=== PATIENT | male | born 1985 | race Caucasian/White ===

== ENCOUNTER 2020-09-28 12:52 | Emergency (ER) | payer MEDICAID, SELFPAY ==
[2020-09-28 13:53] VITALS: BP 151/97; PULSE 78; RESP 16; TEMP 36.4; O2SAT 100; BMI 20.9
--- NOTE | 2020-09-28 16:06 | W.ED.GIBLEED ---
HPI - GI Bleed General: Chief complaint: GI Bleed Stated complaint: abd pain, blood in stool, vomiting Time Seen by Provider: 09/28/20 15:58 History of Present Illness: HPI Narrative: 35-year-old with history of ulcerative colitis. Is been several years since he has had a flare. Last several months has lost 30 or 40 pounds he recently moved to this area is not seen a doctor yet. He has been having intermittent bloody stools since have been progressively worsening. Has a lot of abdominal discomfort and cramping he has not had any hematemesis. He denies fever is not had any treatment for he is currently not take anything for it. MD complaint: gross hematochezia Onset (ago): month(s) Pain Consistency: intermittent Severity: moderate Relieving factors: none Associated symptoms: Reports abdominal pain, malaise, nausea, poor appetite and weakness; Denies chills, easy bruising, epistaxis, fever(s), headache(s), other bleeding, rash, syncope or vomiting Treatments Prior to Arrival: none Review of Systems Const: Reports: malaise; Denies: fever(s) or chills ENMT: Denies: epistaxis Card: Denies: syncope Resp: Denies: dyspnea, productive cough or non-productive cough GI: Reports: abdominal pain and nausea; Denies: vomiting : Denies: flank pain, dysuria, urinary frequency or urinary urgency Skin/Breast: Denies: rash Neuro: Denies: headache(s) Omid/Lymph: Denies: easy bruising PFS ED PFSH: Social History Smoking and tobacco status: never smoked Alcohol intake: never Physical Exam Const: COMMON NORMALS: no acute distress GENERAL APPEARANCE: cooperative and comfortable ORIENTATION/CONSCIOUSNESS: Yes awake, Yes oriented to person, Yes oriented to place and Yes oriented to time HENMT: COMMON NORMALS: normocephalic, atraumatic and hearing grossly normal bilaterally HEAD & SCALP: normocephalic and atraumatic Neck/C-Spine: COMMON NORMALS: no JVD Resp: COMMON NORMALS: normal respiratory effort, No retractions, No use of accessory muscles and clear to auscultation bilaterally AUSCULTATION: clear to auscultation bilaterally Cardio: COMMON NORMALS: no JVD, regular rate, regular rhythm and No murmurs present (Cardio) RATE: regular rate RHYTHM: regular rhythm GI: COMMON NORMALS: Soft to palpation and No hepatosplenomegaly present AUSCULTATION: Yes normoactive bowel sounds PALPATION: Yes Soft to palpation, Yes Tenderness to palpation present (GI) (diffuse), No Guarding due to palpation present (GI) and Yes No hepatosplenomegaly present Extremity: COMMON NORMALS: normal to inspection, capillary refill normal, no clubbing, cyanosis or edema, no calf tenderness and no pedal edema Neuro: SENSORIUM/ORIENTATION: Yes oriented to person, Yes oriented to place and Yes oriented to time Skin: COMMON NORMALS: no rashes or lesions noted GENERAL SKIN EXAM: no rashes or lesions noted Course Vital Signs: Vital signs: Vital Signs Temperature 97.5 F L 09/28/20 13:53 Pulse Rate 79 09/28/20 18:24 Respiratory Rate 19 H 09/28/20 18:24 Blood Pressure 165/102 09/28/20 18:24 Pulse Oximetry 99 09/28/20 18:24 MDM - GI Bleed MDM Narrative: Medical decision making narrative: Reviewed findings with the patient we will start him on prednisone given hydrocodone and Zofran. Hydroxyzine as needed for anxiety follow-up with primary care will have case management get him established with Dr. Alex wang if has further problems Lab Data: Labs: Lab Results 09/28/20 09/28/20 09/28/20 Range/Units 16:29 16:29 16:29 WBC 7.6 (4.0-10.0) 10^3/ uL RBC 4.81 (4.1-5.3) 10^6/u L Hgb 14.1 (11.7-16.6) g/dL Hct 43.0 (42.0-52.0) % MCV 89.4 (80-94) fL MCH 29.3 (28.0-34.0) pg MCHC 32.8 (30.0-36.0) g/dL RDW 13.2 (12.1-15.1) % Plt Count 280 (130-400) 10^3/c mm MPV 11.1 H (7.4-10.4) fL Neut % (Auto) 62.8 % Lymph % (Auto) 29.4 % [place] % (Auto) 5.7 % Eos % (Auto) 1.3 % Baso % (Auto) 0.7 % Neut # (Auto) 4.77 (1.8-7.7) 10^3/u L Lymph # (Auto) 2.2 (0.8-4.8) 10^3/u L [place] # (Auto) 0.4 (0.2-0.9) 10^3/u L Eos # (Auto) 0.1 (0.0-0.8) 10^3/u L Baso # (Auto) 0.1 (0.0-0.1) 10^3/u L Nucleated RBC % (a uto) 0 % Nucleated RBCs # 0.0 /100WBC Sodium 141 (136-145) mmol/L Potassium 4.3 (3.5-5.1) mmol/L Chloride 100 (98-107) mmol/L Carbon Dioxide 27 (22-29) mmol/L Anion Gap 18.3 (5-19) BUN 6 (6-20) mg/dL Creatinine 0.8 (0.7-1.2) mg/dL GFR Calculation 108.8 (90-130) mL/min Glucose 93 (65-115) mg/dL Calculated Osmolal ity 289 (285-295) mOsm/k g Lactic Acid 1.4 (0.5-2.2) mmol/L Calcium 9.3 (8.5-10.5) mg/dL Total Bilirubin 0.3 (0.15-1.2) mg/dL AST 15 (0-40) U/L ALT 11 (0-41) U/L Alkaline Phosphata se 104 (40-130) IU/L Total Protein 7.7 (6.6-8.7) g/dL Albumin 4.5 (3.5-5.2) g/dL Globulin 3.2 (1.3-4.6) g/dL Lipase 23 (13-60) U/L Urine Color (Yellow) Urine Appearance (CLEAR) Urine pH (5-7) Ur Specific Gravit y (1.005-1.030) Urine Protein (Negative) Urine Glucose (UA) (Normal) Urine Ketones (Negative) Urine Blood (Negative) Urine Nitrate (Negative) Urine Bilirubin (Negative) Urine Urobilinogen (Negative) mg/dL Ur Leukocyte Rosa Isela ase (Negative) 09/28/20 Range/Units 17:04 WBC (4.0-10.0) 10^3/ uL RBC (4.1-5.3) 10^6/u L Hgb (11.7-16.6) g/dL Hct (42.0-52.0) % MCV (80-94) fL MCH (28.0-34.0) pg MCHC (30.0-36.0) g/dL RDW (12.1-15.1) % Plt Count (130-400) 10^3/c mm MPV (7.4-10.4) fL Neut % (Auto) % Lymph % (Auto) % [place] % (Auto) % Eos % (Auto) % Baso % (Auto) % Neut # (Auto) (1.8-7.7) 10^3/u L Lymph # (Auto) (0.8-4.8) 10^3/u L [place] # (Auto) (0.2-0.9) 10^3/u L Eos # (Auto) (0.0-0.8) 10^3/u L Baso # (Auto) (0.0-0.1) 10^3/u L Nucleated RBC % (a uto) % Nucleated RBCs # /100WBC Sodium (136-145) mmol/L Potassium (3.5-5.1) mmol/L Chloride (98-107) mmol/L Carbon Dioxide (22-29) mmol/L Anion Gap (5-19) BUN (6-20) mg/dL Creatinine (0.7-1.2) mg/dL GFR Calculation (90-130) mL/min Glucose (65-115) mg/dL Calculated Osmolal ity (285-295) mOsm/k g Lactic Acid (0.5-2.2) mmol/L Calcium (8.5-10.5) mg/dL Total Bilirubin (0.15-1.2) mg/dL AST (0-40) U/L ALT (0-41) U/L Alkaline Phosphata se (40-130) IU/L Total Protein (6.6-8.7) g/dL Albumin (3.5-5.2) g/dL Globulin (1.3-4.6) g/dL Lipase (13-60) U/L Urine Color Straw (Yellow) Urine Appearance Clear (CLEAR) Urine pH 7 (5-7) Ur Specific Gravit y 1.000 L (1.005-1.030) Urine Protein Neg (Negative) Urine Glucose (UA) Norm (Normal) Urine Ketones Negative (Negative) Urine Blood Neg (Negative) Urine Nitrate Negative (Negative) Urine Bilirubin Neg (Negative) Urine Urobilinogen Norm (Negative) mg/dL Ur Leukocyte Rosa Isela ase Negative (Negative) Discharge Plan Discharge Patient Disposition: Home Clinical Impression: Ulcerative colitis Condition: Stable Prescriptions: New hydrocodone-acetaminophen 5-325 mg tablet 1 tab PO Q6H PRN (Reason: pain) Qty: 15 RF: 0 Zofran 4 mg tablet 4 mg PO Q6H PRN (Reason: nausea and vomiting) Qty: 20 RF: 0 prednisone 20 mg tablet 20 mg PO BID Qty: 30 RF: 0 hydroxyzine HCl 25 mg tablet 25 mg PO Q6H PRN (Reason: anxiety) Qty: 14 RF: 0 Discharge Orders: Discharge ED (Routine); Ordered 09/28/20 Ordered By: Aaron South Discharge Diet: Clear Liquid Discharge Activity: Increase activity as tolerated Patient Instructions: Opioid Safety Activity Restrictions/Additional Instructions: Case management will call to get you set up to see Dr. Johnson to establish as a primary transitional care nurse and to manage her ulcerative colitis. Coding Level of Care Code ED Neurocritical Care Physician for Shanice Fwd Exam Comprehensive
--- NOTE | 2020-09-28 16:11 | CTR_ITS ---
PROCEDURE INFORMATION: Exam: CT Abdomen And Pelvis With Contrast Exam date and time: 09/28/2020 4:11 PM Age: 35 years old Clinical indication: Nausea and vomiting and other: Diarrhea; Abdominal pain; Localized; Right; Additional info: Abd pain TECHNIQUE: Imaging protocol: Computed tomography of the abdomen and pelvis with contrast. Radiation optimization: All CT scans at this facility use at least one of these dose optimization techniques: automated exposure control; mA and/or kV adjustment per patient size (includes targeted exams where dose is matched to clinical indication); or iterative reconstruction. Contrast material: [id number]; Contrast volume: 95 ml; Contrast route: INTRAVENOUS (IV); COMPARISON: No relevant prior studies available. RADIATION DOSE METRICS: Total DLP (mGy-cm): 1084.51 FINDINGS: Liver: Normal. No mass. Gallbladder and bile ducts: Normal. No calcified stones. No ductal dilation. Pancreas: Normal. No ductal dilation. Spleen: Normal. No splenomegaly. Adrenal glands: Normal. No mass. Kidneys and ureters: Incidental finding of small simple left renal lower pole cortical cyst. Negative for hydronephrosis. No renal stones. Stomach and bowel: There is a short segment of mild bowel wall thickening in the descending left colon. There is some mild haziness of the adjacent fat. Cluster of mildly prominent pericolonic lymph nodes in the area. Negative for bowel obstruction. Negative for bowel perforation. Moderate fecal volume. Appendix: No evidence of appendicitis. Intraperitoneal space: Unremarkable. No free air. No significant fluid collection. Vasculature: Unremarkable. No abdominal aortic aneurysm. Lymph nodes: No significant abdominopelvic lymphadenopathy. Urinary bladder: Unremarkable as visualized. Reproductive: Unremarkable as visualized. Bones/joints: S shaped thoracolumbar spine scoliosis. No focal bone lesions. No acute fractures. Soft tissues: Unremarkable. CT/CT abdomen pelvis w con* [id number] IMPRESSION: A short segment area of mild bowel wall thickening with induration of the immediate pericolonic fat and mildly prominent lymph nodes is noted in the left lower abdomen. Cannot exclude a nonspecific colitis pattern. Mass considered less likely. COMMENTS: Consistent with the [employer]'s Incidental Findings Committee white paper (J Am Shawna Radiol 2018): Any incidental renal lesion less than 1 cm or classified as too small to characterize, or any incidental cystic renal lesion characterized as simple-appearing, is likely benign. No follow-up imaging is recommended for these lesions per consensus recommendations based on imaging criteria. Radiation Dose CTDIVOL = (mGy): DLP = 1084.51 (mGy-cm)
[2020-09-28 16:31] VITALS: BP 147/112; PULSE 76; RESP 15; O2SAT 100
[2020-09-28 16:42] LABS: Basophils # 0.1 10^3/uL (0.0-0.1); Basophils % 0.7 %; Eosinophils # 0.1 10^3/uL (0.0-0.8); Eosinophils % 1.3 %; Hemoglobin 14.1 g/dL (11.7-16.6); Lymphocytes # 2.2 10^3/uL (0.8-4.8); Lymphocytes % 29.4 %; Mean Corpuscular HGB Conc 32.8 g/dL (30.0-36.0); Mean Corpuscular Hemoglobin 29.3 pg (28.0-34.0); Mean Corpuscular Volume 89.4 fL (80-94); Mean Platelet Volume 11.1 fL (7.4-10.4); Monocytes # 0.4 10^3/uL (0.2-0.9); Monocytes % 5.7 %; Neutrophils # 4.77 10^3/uL (1.8-7.7); Neutrophils % 62.8 %; Nucleated Red Blood Cells % 0 %; Platelet Count 280 10^3/cmm (130-400); Red Blood Count 4.81 10^6/uL (4.1-5.3); Red Cell Distribution Width 13.2 % (12.1-15.1); White Blood Count 7.6 10^3/uL (4.0-10.0)
[2020-09-28] MEDS: sodium chloride 0.9% 1,000 ML 999 ML IV (16:51)
[2020-09-28] MEDS: iohexol 300 mg/mL 100 mL Btl IV (16:51)
[2020-09-28] MEDS: ondansetron 2 mg/ML SDV 2 mL 4 MG IVP (16:51)
[2020-09-28 17:06] VITALS: BP 137/98; PULSE 69; RESP 12; O2SAT 99
[2020-09-28 17:17] LABS: Alanine Aminotransferase 11 U/L (0-41); Albumin Level 4.5 g/dL (3.5-5.2); Alkaline Phosphatase 104 IU/L (40-130); Anion Gap 18.3 (5-19); Aspartate Amino Transferase 15 U/L (0-40); Blood Urea Nitrogen 6 mg/dL (6-20); Calcium 9.3 mg/dL (8.5-10.5); Carbon Dioxide 27 mmol/L (22-29); Chloride 100 mmol/L (98-107); Globulin 3.2 g/dL (1.3-4.6); Glomerular Filtration Rate 108.8 mL/min (90-130); Glucose 93 mg/dL (65-115); Lipase 23 U/L (13-60); Osmolality Calculated 289 mOsm/kg (285-295); Potassium 4.3 mmol/L (3.5-5.1); Sodium 141 mmol/L (136-145); Total Bilirubin 0.3 mg/dL (0.15-1.2); Total Protein 7.7 g/dL (6.6-8.7)
[2020-09-28 17:18] LABS: Lactic Sepsis W/Reflex 1.4 mmol/L (0.5-2.2)
[2020-09-28 17:21] LABS: Add Urine Microscopic? NO; Charge for UA Resulting for Rev
[2020-09-28 17:30] VITALS: BP 143/96; PULSE 70; RESP 10; O2SAT 100
[2020-09-28 17:35] LABS: Bilirubin Urine Neg (Negative); Blood Urine Neg (Negative); Glucose Urine UA Norm (Normal); Ketones Urine Negative (Negative); Leukocyte Esterase Urine Negative (Negative); Nitrate Urine Negative (Negative); Protein Urine Neg (Negative); Urine Appearance Clear (CLEAR); Urine Color Straw (Yellow); Urobilinogen Urine Norm (Negative); pH Urine 7 (5-7)
[2020-09-28 18:24] VITALS: BP 165/102; PULSE 79; RESP 19; O2SAT 99
--- NOTE | 2020-09-30 09:01 | DCPLANNER ---
fitness manager had message to schedule a follow up appointment for patient with Dr. Johnson. fitness manager called the office of Dr. Johnson, spoke with Edna, gave clinic patients information. A follow up appointment was scheduled for Saturday, October 05, 2020 at 1:[address] Johnson. Clinic will call patient with appointment information.
--- NOTE | 2020-11-03 11:13 | DCPLANNER ---
Patient had a follow up appointment scheduled with - patient did attend appointment.
== END 2020-09-28 18:27 | disposition home or self-care (01) ==
PROVIDERS: Physician Assistant; Emergency Provider Family Medicine
DX: K51.90 Ulcerative colitis, unspecified, without complications (principal)
CPT/HCPCS: 74177; 80053; 81003; 83605; 83690; 85025; 96361; 96374; 99283; J2405; J7030; Q9967

== ENCOUNTER → 2020-10-19 16:09 | Outpatient (BNVA) | payer MEDICAID, SELFPAY | PROVIDERS: Visit Provider Internal Medicine | DX: Z01.812 Encounter for preprocedural laboratory examination (principal); K51.90 Ulcerative colitis, unspecified, without complications; Z20.822 Contact with and (suspected) exposure to COVID-19 | CPT/HCPCS: 87635 ==

== ENCOUNTER 2020-10-24 09:37 | Day surgery (SDC) | payer MEDICAID, SELFPAY ==
[2020-10-20 13:54] VITALS: BMI 24.4
--- NOTE | 2020-10-24 09:43 | W.PM.OPSFHP ---
Same Day Surgery H&P Indication for Procedure/HPI DATE OF PROCEDURE: October 24, 2020 CHIEF COMPLAINT/INDICATIONFOR SURGICAL PROCEDURE: Ulcerative colitis PREOP DIAGNOSIS: Ulcerative colitis PLANNED PROCEDRUE: Operation Date: 10/24/20 11:00 Proposed Procedures p Colonoscopy 62613 K51.90(Not Applicable) - Julio Johnson MD Medications/Allergies* Allergies/Adverse Reactions Allergy/AdvReac Type Severity Reaction Status Date / Time No Known Allergies Allergy Verified 10/18/20 14:40 Pertinent History/Comorbid Conditions* Social History Smoking and tobacco status: never smoked Alcohol intake: never Pertinent Exam Findings alert, oriented x 3, clear to auscultation bilaterally, regular rate & rhythm, operative site marked and procedure specific exam findings Recommendations Surgery/Procedure today Coding Level of Care Code Acute Plant Breeder Scientist for Shanice Agrawal
--- NOTE | 2020-10-24 10:00 | ANES.PREANE2 ---
Pre-Anesthetic Assessment Pre-Anesthetic Assessment: Height/Weight: Height 1.83 m Weight 81.647 kg Preop Diagnosis: Ulcerative colitis Proposed Procedure: Operation Date: 10/24/20 11:00 Proposed Procedures p Colonoscopy 79501 K51.90(Not Applicable) - Julio Johnson MD Was Beta Gregorio taken within 24 hours: N/A Was Clonidine taken within 24 hours: N/A Social: Social History: No alcohol and No tobacco Exam: Pre-Anes Outpt Exam: alert, oriented x 3, clear to auscultation bilaterally and regular rate & rhythm Airway: Submandibular: WNL Cervical ROM: WNL MP: 2 Dentition: Full GI: Comments: UC Neuropsych: Neuropsych: Anxiety Anesthetic Plan: ASA status: 2 Anesthesia: MAC Risk of > 500 ml blood loss (7ml/kg in children): No PFSH Anesthesia PFSH: Social History Smoking and tobacco status: never smoked Alcohol intake: never Data Anesthesia Cardiac Studies: No Data to Display
[2020-10-24 10:17] VITALS: BP 154/100; PULSE 73; RESP 18; TEMP 37.2
[2020-10-24] MEDS: sodium chloride 0.9% 1,000 ML 30 ML IV (10:31)
[2020-10-24 11:50] VITALS: BP 149/90; PULSE 81; RESP 16; TEMP 36.6; O2SAT 94
[2020-10-24 12:15] VITALS: BP 104/66; PULSE 67; RESP 18; O2SAT 95
--- NOTE | 2020-10-24 12:57 | ANE.PACU2 ---
Inpatient post-anesthesia follow up: Airway intact: Yes Vital signs: Temperature 97.9 F Pulse Rate 67 Respiratory Rate 18 Blood Pressure 104/66 Pulse Oximetry 95 Oxygen Delivery Me thod Room Air Oxygen Flow Rate 4 Fraction of Inspir ed Oxygen Hydration adequate: Yes Nausea and vomiting: No Pain level: 1 Mental status: Baseline
== END 2020-10-24 12:45 | disposition home or self-care (01) ==
PROVIDERS: PCP Internal Medicine; Visit Provider Internal Medicine
PROC: 0DJD8ZZ Inspection of Lower Intestinal Tract, Via Natural or Artificial Opening Endoscopic (ICD-10-PCS; CPT 45378; principal; 2020-10-24 11:00)
DX: K51.90 Ulcerative colitis, unspecified, without complications (principal); K56.699 Other intestinal obstruction unspecified as to partial versus complete obstruction
CPT/HCPCS: 45380; 88305; 96360; 96361; J7030

== ENCOUNTER → 2021-08-16 08:27 | Outpatient (BNVA) | payer MEDICAID, SELFPAY | PROVIDERS: PCP Internal Medicine; Visit Provider Psychiatry & Neurology Psychiatry | DX: F40.10 Social phobia, unspecified (principal); F43.12 Post-traumatic stress disorder, chronic; F41.1 Generalized anxiety disorder | CPT/HCPCS: 99204 ==

== ENCOUNTER → 2021-09-14 15:48 | Outpatient (BNVA) | payer OTHER, SELFPAY | PROVIDERS: PCP Internal Medicine; Visit Provider Psychiatry & Neurology Psychiatry | DX: F43.12 Post-traumatic stress disorder, chronic (principal); F40.10 Social phobia, unspecified; F41.1 Generalized anxiety disorder | CPT/HCPCS: 99214 ==

== ENCOUNTER 2021-10-04 11:00 | Emergency (ER) | payer MEDICAID, SELFPAY ==
[2021-10-04 11:27] VITALS: BP 141/83; PULSE 83; RESP 16; TEMP 37; O2SAT 99; BMI 20.9
--- NOTE | 2021-10-04 12:03 | ED_ITS ---
HPI - General Adult General: Chief complaint: General Medical Stated complaint: aches and pain everywhere, confusion Time Seen by Provider: 10/04/21 11:38 History of Present Illness: Patient is a 36-year-old male comes to the ED multiple complaints. Patient says he is very anxious and is having a lot of aching joint pain that has been going on now for a couple months. He has a [facility] physician, but has not seen any provider for this complaint over the past couple months. He currently takes sertraline daily along with trazodone at night to help with sleep. Patient says his health is causing him a lot of anxiety and stress. Patient says he has been confused a little lately to for the past couple months and when asked about why he thinks he is having some confusion he gave me an example of someone asking him his telephone number and he could not remember it. Denies any other acute complaints. Associated symptoms: Deny chest pain, dyspnea, headache(s), nausea, rash, palpitations or vomiting Review of Systems Const: Denies: fever(s), chills or fatigue Eyes: Denies: change in vision or eye discomfort ENMT: Denies: throat pain, odynophagia, nasal discharge or nasal congestion Card: Denies: chest pain, palpitations, edema, swelling of feet/ankles, dyspnea on exertion or orthopnea Resp: Denies: dyspnea, productive cough or non-productive cough GI: Denies: abdominal pain, nausea, vomiting, diarrhea, constipation or hematochezia : Denies: flank pain, difficulty urinating, dysuria or hematuria Musc: Reports: joint pain (Pain in all of his joints); Denies: neck pain, back pain or extremity swelling Skin/Breast: Denies: rash or new lesions Neuro: Denies: headache(s), numbness in extremities or weakness in extremities Psych: Reports: anxiety PFSH ED PFSH: Medical History Psychiatric care Social History Smoking and tobacco status: never smoked Second hand smoke exposure: No Alcohol intake: never Physical Exam Narrative: EXAM NARRATIVE: Patient appears healthy and in no acute distress or pain. He sitting comfortably on exam chair went into the room. He seems very anxious about his health. Const: COMMON NORMALS: no acute distress, patient oriented x3, healthy appearing and alert GENERAL APPEARANCE: cooperative, comfortable and anxious HENMT: COMMON NORMALS: normocephalic HEAD & SCALP: normocephalic MOUTH: Normal oral and palatal mucosa present THROAT: posterior oropharynx normal and uvula midline Neck/C-Spine: COMMON NORMALS: supple GENERAL: Yes normal visual inspection Resp: COMMON NORMALS: normal respiratory effort, No retractions, No use of accessory muscles and clear to auscultation bilaterally AUSCULTATION: clear to auscultation bilaterally Cardio: COMMON NORMALS: regular rate, regular rhythm, S1 normal heart sound p resent, S2 normal heart sound present, No gallops present (Cardio), No clicks present (Cardio), No murmurs present (Cardio) and Peripheral pulses 2+ throughout RATE: regular rate RHYTHM: regular rhythm HEART SOUNDS: S1 normal heart sound present and S2 normal heart sound present PERIPHERAL PULSES: Peripheral pulses 2+ throughout GI: COMMON NORMALS: Normal to inspection, nondistended, normoactive bowel sounds present, Soft to palpation, non-tender and no masses PALPATION: Yes Soft to palpation : COMMON NORMALS: Yes no CVA tenderness BLADDER/KIDNEY EXAM: Yes no CVA tenderness Back/Pelvis: COMMON NORMALS: no CVA tenderness Extremity: COMMON NORMALS: normal to inspection, full ROM and no pedal edema Neuro: COMMON NORMALS: patient oriented x3, CN's II-XII intact bilaterally, moves all extremities, no focal motor deficits and no sensory deficits noted SENSORIUM/ORIENTATION: Yes alert SENSORY EXAM: Yes extremities (intact) MOTOR EXAM: 5/5 motor strength present throughout Skin: GENERAL SKIN EXAM: dry skin Course Vital Signs: Vital signs: Vital Signs Temperature 98.6 F 10/04/21 11:27 Pulse Rate 83 10/04/21 11:27 Respiratory Rate 18 10/04/21 13:54 Blood Pressure 141/83 10/04/21 11:27 Pulse Oximetry 99 10/04/21 11:27 [facility] - General Adult Medical Decision Making Patient is a 36-year-old male comes to the ED with multiple complaints. He is having joint pain throughout his body for over the past couple months. Vitals are stable. Patient appears very anxious about his health and keeps voicing numerous different symptoms and concerns. None of which seem to be acute. Patient appears nontoxic and in no acute distress or pain. Rest of exam is benign. CBC and CMP is unremarkable. Patient was stable for discharge home and diagnosed with anxiety about his health. He was told to follow-up with his PCP in the next week for reevaluation. Return ED precautions given. Patient understood and agreed with plan. Lab Data I reviewed the patient's lab results. : 10/04/21 12:39 10/04/21 12:39 Laboratory Results WBC 6.4 10^3/uL (4.0-10.0) 10/04/21 12:39 RBC 4.73 10^6/uL (4.1-5.3) 10/04/21 12:39 Hgb 14.1 g/dL (11.7-16.6) 10/04/21 12:39 Hct 42.3 % (42.0-52.0) 10/04/21 12:39 MCV 89.4 fl (80-94) 10/04/21 12:39 MCH 29.8 pg (28.0-34.0) 10/04/21 12:39 MCHC 33.3 g/dL (30.0-36.0) 10/04/21 12:39 RDW 12.7 % (12.1-15.1) 10/04/21 12:39 Plt Count 263 10^3/cmm (130-400) 10/04/21 12:39 MPV 10.5 fL (7.4-10.4) H 10/04/21 12:39 Neut % (Auto) 79.9 % 10/04/21 12:39 Lymph % (Auto) 13.3 % 10/04/21 12:39 [place] % (Auto) 6.0 % 10/04/21 12:39 Eos % (Auto) 0.2 % 10/04/21 12:39 Baso % (Auto) 0.3 % 10/04/21 12:39 Neut # (Auto) 5.09 10^3/uL (1.8-7.7) 10/04/21 12:39 Lymph # (Auto) 0.9 10^3/uL (0.8-4.8) 10/04/21 12:39 [place] # (Auto) 0.4 10^3/uL (0.2-0.9) 10/04/21 12:39 Eos # (Auto) 0.0 10^3/uL (0.0-0.8) 10/04/21 12:39 Baso # (Auto) 0.0 10^3/uL (0.0-0.1) 10/04/21 12:39 Nucleated RBC % (auto) 0 % 10/04/21 12:39 Nucleated RBCs # 0.0 /100WBC 10/04/21 12:39 Sodium 135 mmol/L (136-145) L 10/04/21 12:39 Potassium 4.1 mmol/L (3.5-5.1) 10/04/21 12:39 Chloride 97 mmol/L (98-107) L 10/04/21 12:39 Carbon Dioxide 27 mmol/L (22-29) 10/04/21 12:39 Anion Gap 15.1 (5-19) 10/04/21 12:39 BUN 8 mg/dL (6-20) 10/04/21 12:39 Creatinine 0.9 mg/dL (0.7-1.2) 10/04/21 12:39 GFR Calculation 94.4 mL/min (90-130) 10/04/21 12:39 Glucose 92 mg/dL (65-115) 10/04/21 12:39 Calculated Osmolality 278 mOsm/kg (285-295) L 10/04/21 12:39 Calcium 9.3 mg/dL (8.5-10.5) 10/04/21 12:39 Total Bilirubin 0.3 mg/dL (0.15-1.2) 10/04/21 12:39 AST 16 U/L (0-40) 10/04/21 12:39 ALT 13 U/L (0-41) 10/04/21 12:39 Alkaline Phosphatase 107 IU/L (40-130) 10/04/21 12:39 Total Protein 7.4 g/dL (6.6-8.7) 10/04/21 12:39 Albumin 4.6 g/dL (3.5-5.2) 10/04/21 12:39 Globulin 2.8 g/dL (1.3-4.6) 10/04/21 12:39 Discharge Plan Discharge Patient Disposition: Home Clinical Impression: Anxiety about health Condition: Stable Prescriptions: New Celebrex 100 mg capsule 100 mg PO BID PRN (Reason: pain) Qty: 20 0RF Vistaril 50 mg capsule 50 mg PO Q8H PRN (Reason: acute anxiety) Qty: 30 0RF No Action trazodone 50 mg tablet 100 mg PO .HS PRN (Reason: insomnia) Qty: 60 1RF hydroxyzine HCl 25 mg tablet 25 mg PO QID PRN (Reason: anxiety) Qty: 120 1RF sertraline [Zoloft] 100 mg tablet 100 mg PO DAILY Qty: 30 1RF ondansetron HCl 4 mg tablet 4 mg PO QID PRN (Reason: Nausea) 0RF Lialda 1.2 gram tablet,delayed release (DR/EC) 4.8 g PO DAILY 56 Days Qty: 120 8RF Discharge Orders: Discharge ED (Routine); Ordered 10/04/21 Ordered By: Juan David Corrigan Referrals: Julio Johnson MD [Primary Care Provider] - Discharge Diet: Regular Discharge Activity: Resume usual activity Activity Restrictions/Additional Instructions: Follow-up with your PCP for further evaluation of health concerns. Continue taking all home medications as previously prescribed. Return to the ER or your medical provider if condition worsens. Please read and understand discharge instructions. Thank you for choosing [facility] for your healthcare needs today. Please realize this is an emergency room and that we are providing you with a medical screening exam and this may not be complete and all inclusive of all the testing and or work up that you may need to determine your ailment or severity of your illness. It is very important that you follow up as instructed or that you return to the Emergency Department should you have concerns or if your condition changes or worsens in any way. Coding Level of Care Code ED Corporate Accountant for Shanice Fwjayden Exam Comprehensive
[2021-10-04] MEDS: LORazepam 1 mg Tablet PO (12:17)
[2021-10-04 12:54] LABS: Basophils % 0.3 %; Eosinophils % 0.2 %; Hematocrit 42.3 % (42.0-52.0); Hemoglobin 14.1 g/dL (11.7-16.6); Lymphocytes # 0.9 10^3/uL (0.8-4.8); Lymphocytes % 13.3 %; Mean Corpuscular HGB Conc 33.3 g/dL (30.0-36.0); Mean Corpuscular Hemoglobin 29.8 pg (28.0-34.0); Mean Corpuscular Volume 89.4 fl (80-94); Mean Platelet Volume 10.5 fL (7.4-10.4); Monocytes # 0.4 10^3/uL (0.2-0.9); Neutrophils # 5.09 10^3/uL (1.8-7.7); Neutrophils % 79.9 %; Nucleated Red Blood Cells % 0 %; Platelet Count 263 10^3/cmm (130-400); Red Blood Count 4.73 10^6/uL (4.1-5.3); Red Cell Distribution Width 12.7 % (12.1-15.1); White Blood Count 6.4 10^3/uL (4.0-10.0)
[2021-10-04 13:27] LABS: Alanine Aminotransferase 13 U/L (0-41); Albumin Level 4.6 g/dL (3.5-5.2); Alkaline Phosphatase 107 IU/L (40-130); Anion Gap 15.1 (5-19); Aspartate Amino Transferase 16 U/L (0-40); Blood Urea Nitrogen 8 mg/dL (6-20); Calcium 9.3 mg/dL (8.5-10.5); Carbon Dioxide 27 mmol/L (22-29); Chloride 97 mmol/L (98-107); Globulin 2.8 g/dL (1.3-4.6); Glomerular Filtration Rate 94.4 mL/min (90-130); Glucose 92 mg/dL (65-115); Osmolality Calculated 278 mOsm/kg (285-295); Potassium 4.1 mmol/L (3.5-5.1); Sodium 135 mmol/L (136-145); Total Bilirubin 0.3 mg/dL (0.15-1.2); Total Protein 7.4 g/dL (6.6-8.7)
[2021-10-04 13:54] VITALS: RESP 18
== END 2021-10-04 13:55 | disposition home or self-care (01) ==
PROVIDERS: Emergency Provider Physician Assistant; PCP Internal Medicine
DX: F41.9 Anxiety disorder, unspecified (principal)
CPT/HCPCS: 36415; 80053; 85025; 99283

== ENCOUNTER → 2021-10-05 14:43 | Outpatient (BNVA) | payer MEDICAID, SELFPAY | PROVIDERS: PCP Internal Medicine; Visit Provider Internal Medicine | DX: R53.83 Other fatigue (principal); D64.9 Anemia, unspecified; K51.90 Ulcerative colitis, unspecified, without complications; F41.1 Generalized anxiety disorder | CPT/HCPCS: 82607; 82746; 83550; 84443; 85651; 86140 ==

== ENCOUNTER 2024-05-12 19:43 | Emergency (ER) | payer MEDICAID, SELFPAY ==
[2024-05-12 19:45] VITALS: BP 127/76; PULSE 88; RESP 18; TEMP 37.1; O2SAT 96; BMI 25.8
--- NOTE | 2024-05-12 19:51 | CTR_ITS ---
PROCEDURE INFORMATION: Exam: CT Head Without Contrast Exam date and time: 05/12/2024 9:06 PM Age: 38 years old Clinical indication: Other: Syncopeal episode; Additional info: Syncope TECHNIQUE: Imaging protocol: Computed tomography of the head without contrast. Radiation optimization: All CT scans at this facility use at least one of these dose optimization techniques: automated exposure control; mA and/or kV adjustment per patient size (includes targeted exams where dose is matched to clinical indication); or iterative reconstruction. COMPARISON: No relevant prior studies available. RADIATION DOSE METRICS: Total DLP (mGy-cm): 1214.1 FINDINGS: Brain: Juan Manuel cisterna magna which is a normal variant. Cerebral ventricles: No ventriculomegaly. Paranasal sinuses: Visualized sinuses are unremarkable. No fluid levels. Mastoid air cells: Visualized mastoid air cells are well aerated. Bones: Unremarkable. No acute fracture. Soft tissues: Unremarkable. CT/CT head wo con* [id number] IMPRESSION: No acute intracranial findings.
--- NOTE | 2024-05-12 19:51 | CTR_ITS ---
PROCEDURE INFORMATION: Exam: CT Abdomen And Pelvis With Contrast Exam date and time: 05/12/2024 9:06 PM Age: 38 years old Clinical indication: Abdominal pain; Additional info: Abd pain TECHNIQUE: Imaging protocol: Computed tomography of the abdomen and pelvis with contrast. Radiation optimization: All CT scans at this facility use at least one of these dose optimization techniques: automated exposure control; mA and/or kV adjustment per patient size (includes targeted exams where dose is matched to clinical indication); or iterative reconstruction. Contrast material: OMNIPAQUE 350; Contrast volume: 100 ml; Contrast route: INTRAVENOUS (IV); COMPARISON: CT abdomen pelvis w con* [id number] 09/28/2020 4:48 PM RADIATION DOSE METRICS: Total DLP (mGy-cm): 757.3 FINDINGS: Lungs: Posteroinferior right lower lobe 7 mm calcified granuloma. Minimal bibasilar atelectasis, imaged lungs otherwise clear. Diaphragm: Small hiatal hernia. Liver: Normal. No mass. Gallbladder and biliary ducts: Normal. No calcified stones. No ductal dilation. Pancreas: Normal. No ductal dilation. Spleen: Spleen normal in size and contour. Multiple small internal calcifications consistent with prior granulomatous disease. Adrenal glands: Normal. No mass. Kidneys and ureters: Bilateral renal subcentimeter cortical hypodensities, likely cysts but too small to characterize. Renal enhancement otherwise symmetrical. No hydronephrosis or urolithiasis. Stomach and bowel: Small bowel normal without focal wall thickening or adjacent inflammation. Mild wall thickening of the mid to distal sigmoid colon and proximal rectum. Nonobstructive bowel gas pattern. Appendix: Normal appendix. Intraperitoneal space: No free air. No significant free fluid. Vasculature: Unremarkable. No abdominal aortic aneurysm. Lymph nodes: Unremarkable. No enlarged lymph nodes. Urinary bladder: Unremarkable as visualized. Reproductive: Unremarkable as visualized. Bones/joints: Unchanged moderate S shaped scoliosis of the lower thoracic and lumbar spine. Vertebral alignment otherwise anatomic. No acute osseous abnormality. Soft tissues: Unremarkable. CT/CT abdomen pelvis w con* [id number] IMPRESSION: Mild wall thickening of the mid to distal sigmoid colon and proximal rectum, suggestive of mild infectious/inflammatory proctocolitis. Nonobstructive bowel gas pattern. No free air or significant free fluid. COMMENTS: Consistent with the [employer]'s Incidental Findings Committee white paper (J Am Shawna Radiol 2018): Any incidental renal lesion less than 1 cm or classified as too small to characterize, or any incidental cystic renal lesion characterized as simple-appearing, is likely benign. No follow-up imaging is recommended for these lesions per consensus recommendations based on imaging criteria.
--- NOTE | 2024-05-12 19:57 | W.ED.SYNCOPE ---
HPI - Syncope General: Chief Complaint: Syncope Stated Complaint: syncope Time Seen by Provider: 05/12/24 19:44 Source: patient Mode of arrival: ambulatory Limitations: no limitations History of Present Illness: 38-year-old male who is here with EMS patient has history of ulcerative colitis states he feels like he had a flare lately has been having diarrhea with abdominal pain he states that today he had a syncopal event passed out for roughly a minute. Per EMS said he had some convulsions he had no postictal period he states he has had 1 seizure in the past as well. He is originally hypotensive with EMS blood pressure is now improved he denies any vomiting. He denies any headache Associated symptoms: Reports abdominal pain; Deny chest pain, fever(s), headache(s) or nausea Related Data Previous Rx's ?Medication ?Instructions ?Recorded mesalamine 1.2 gram tablet,delayed 4.8 g (4 x 1.2 gram) PO DAILY 8 12/01/21 release (Lialda) weeks #120 tabs hydroxyzine HCl 50 mg tablet 50 mg PO TID PRN anxiety #30 tabs 01/04/22 quetiapine 100 mg tablet (Seroquel) 100 mg PO DAILY #30 tabs 02/20/22 hydrocodone 5 mg-acetaminophen 325 1 tab PO Q6H PRN pain #14 tabs 05/12/24 mg tablet ondansetron 4 mg disintegrating 4 mg PO Q6H PRN nausea and 05/12/24 tablet vomiting #14 tabs prednisone 50 mg tablet 50 mg PO DAILY #5 tabs 05/12/24 Allergies Allergy/AdvReac Type Severity Reaction Status Date / Time No Known Allergies Allergy Verified 05/12/24 19:54 Review of Systems Const: Denies: fever(s), chills, body aches or change in appetite ENMT: Denies: throat pain or dental pain Card: Reports: syncope; Denies: chest pain Resp: Denies: dyspnea GI: Reports: abdominal pain and diarrhea; Denies: nausea or vomiting : Denies: dysuria Musc: Denies: neck pain or back pain Skin/Breast: Denies: rash Neuro: Denies: headache(s) PFSH ED PFSH: Social History (Updated 01/04/22 @ 15:10 by Louie Noordhoek, NATIONAL INVESTIGATIVE PRODUCER) Smoking and tobacco/nicotine status: never used tobacco/nicotine Second hand smoke exposure: No Alcohol intake: former Substance/Drug Use: never Physical Exam Const: COMMON NORMALS: patient oriented x3 HENMT: COMMON NORMALS: normocephalic and atraumatic HEAD & SCALP: normocephalic and atraumatic Eye: COMMON NORMALS: conjunctivae normal CONJUNCTIVA: Yes conjunctivae normal Neck/C-Spine: COMMON NORMALS: full ROM and supple Chest: COMMONS NORMALS: normal inspection of the chest Resp: COMMON NORMALS: normal respiratory effort, No retractions, No use of accessory muscles and clear to auscultation bilaterally AUSCULTATION: clear to auscultation bilaterally Cardio: COMMON NORMALS: regular rate, regular rhythm and No murmurs present (Cardio) RATE: regular rate RHYTHM: regular rhythm GI: COMMON NORMALS: Normal to inspection, nondistended, normoactive bowel sounds present and Soft to palpation PALPATION: Yes Soft to palpation OTHER: mild diffuse tenderness Extremity: COMMON NORMALS: normal to inspection and full ROM Neuro: COMMON NORMALS: patient oriented x3, moves all extremities and no focal motor deficits Psych: COMMON NORMALS: mental status grossly normal, Normal thought process present and cooperative THOUGHT PROCESS: Normal thought process present Skin: COMMON NORMALS: no rashes or lesions noted and no wounds GENERAL SKIN EXAM: no rashes or lesions noted Course Vital Signs: Vital signs: Vital Signs Temperature 98.7 F 05/12/24 19:45 Pulse Rate 80 05/12/24 21:25 Respiratory Rate 16 05/12/24 21:25 Blood Pressure 133/92 05/12/24 21:25 Pulse Oximetry 97 05/12/24 21:25 Oxygen Delivery Me thod Room Air 05/12/24 21:25 MDM - Syncope Medical Decision Making Patient presents here with abdominal pain history of ulcerative colitis CT scan does show findings of ulcerative colitis his white count is normal no signs of any severe infection he feels improved here his vitals here been normal he likely had a syncopal event versus a seizure he has a follow-up with his PCP will place him on pain meds along with steroids he understands agrees to plan Medical Records I reviewed the patient's medical records. Lab Data I reviewed the patient's lab results. 05/12/24 19:35 05/12/24 19:35 Radiology Impressions Abdomen/Pelvis CT 05/12/24 19:51 IMPRESSION: Mild wall thickening of the mid to distal sigmoid colon and proximal rectum, suggestive of mild infectious/inflammatory proctocolitis. Nonobstructive bowel gas pattern. No free air or significant free fluid. COMMENTS: Consistent with the [employer]'s Incidental Findings Committee white paper (J Am Shawna Radiol 2018): Any incidental renal lesion less than 1 cm or classified as too small to characterize, or any incidental cystic renal lesion characterized as simple-appearing, is likely benign. No follow-up imaging is recommended for these lesions per consensus recommendations based on imaging criteria. Head CT 05/12/24 19:51 IMPRESSION: No acute intracranial findings. Chest X-Ray 05/12/24 20:58 IMPRESSION: No visualized acute cardiopulmonary process. Laboratory Results WBC 9.72 10^3/uL (3.29-11.43) 05/12/24 19:35 RBC 5.19 10^6/uL (3.85-5.65) 05/12/24 19:35 Hgb 15.20 g/dL (11.27-16.99) 05/12/24 19:35 Hct 47.0 % (37-53) 05/12/24 19:35 MCV 90.6 fl (82-101) 05/12/24 19:35 MCH 29.3 pg (27-33) 05/12/24 19:35 MCHC 32.3 g/dL (30-55) 05/12/24 19:35 RDW 13.6 % (12.1-15.1) 05/12/24 19:35 Plt Count 335 10^3/cmm (157-399) 05/12/24 19:35 MPV 10.8 fL (7.4-10.4) H 05/12/24 19:35 Neut % (Auto) 70.5 % 05/12/24 19:35 Lymph % (Auto) 23.7 % 05/12/24 19:35 [place] % (Auto) 4.6 % 05/12/24 19:35 Eos % (Auto) 0.3 % 05/12/24 19:35 Baso % (Auto) 0.6 % 05/12/24 19:35 Neut # (Auto) 6.85 10^3/uL (1.8-7.7) 05/12/24 19:35 Lymph # (Auto) 2.3 10^3/uL (0.8-4.8) 05/12/24 19:35 [place] # (Auto) 0.5 10^3/uL (0.2-0.9) 05/12/24 19:35 Eos # (Auto) 0.0 10^3/uL (0.0-0.8) 05/12/24 19:35 Baso # (Auto) 0.1 10^3/uL (0.0-0.1) 05/12/24 19:35 Nucleated RBC % (auto) 0 % 05/12/24 19:35 Nucleated RBCs # 0.0 /100WBC 05/12/24 19:35 Sodium 138 mmol/L (136-145) 05/12/24 19:35 Potassium 4.0 mmol/L (3.5-5.1) 05/12/24 19:35 Chloride 97 mmol/L (98-107) L 05/12/24 19:35 Carbon Dioxide 17 mmol/L (22-29) L 05/12/24 19:35 Anion Gap 28.0 (5-19) H 05/12/24 19:35 BUN 17 mg/dL (6-20) 05/12/24 19:35 Creatinine 1.1 mg/dL (0.7-1.2) 05/12/24 19:35 GFR Calculation 74.1 mL/min (90-130) L 05/12/24 19:35 Glucose 135 mg/dL (65-115) H 05/12/24 19:35 Calculated Osmolality 290 mOsm/kg (285-295) 05/12/24 19:35 Calcium 9.1 mg/dL (8.5-10.5) 05/12/24 19:35 Total Bilirubin 0.3 mg/dL (0.15-1.2) 05/12/24 19:35 AST 19 U/L (0-40) 05/12/24 19:35 ALT 22 U/L (0-41) 05/12/24 19:35 Alkaline Phosphatase 91 U/L (40-130) 05/12/24 19:35 Total Protein 7.8 g/dL (6.6-8.7) 05/12/24 19:35 Albumin 5.0 g/dL (3.5-5.2) 05/12/24 19:35 Globulin 2.8 g/dL (1.3-4.6) 05/12/24 19:35 Lipase 27 U/L (13-60) 05/12/24 19:35 All radiology interpretation(s) finalized by discharge EKG Data EKG 1: I personally reviewed and interpreted this EKG as follows: EKG interpretation date: 05/12/24 EKG interpretation time: 20:21 Interpretation: nsr hr [address] elevation qrs 115 qtc 405 Discharge Plan Discharge Patient Disposition: Home Clinical Impression: Ulcerative colitis, Syncope, Diarrhea Condition: Stable Prescriptions: New prednisone 50 mg tablet 50 mg PO DAILY Qty: 5 0RF hydrocodone-acetaminophen 5-325 mg tablet 1 tab PO Q6H PRN (Reason: pain) Qty: 14 0RF ondansetron 4 mg tablet,disintegrating 4 mg PO Q6H PRN (Reason: nausea and vomiting) Qty: 14 0RF No Action hydroxyzine HCl 50 mg tablet 50 mg PO TID PRN (Reason: anxiety) Qty: 30 2RF quetiapine [Seroquel] 100 mg tablet 100 mg PO DAILY Qty: 30 2RF Lialda 1.2 gram tablet,delayed release (DR/EC) 4.8 g PO DAILY 56 Days Qty: 120 8RF Discharge Orders: Discharge ED (Routine); Ordered 05/12/24 Ordered By: Julissa Oreilly Referrals: Julio Johnson MD [Physician] - Discharge Diet: Advance as tolerated Discharge Activity: Resume usual activity Patient Instructions: Syncope (ED), Ulcerative Colitis (ED) Print Language: [place]an Coding Level of Care Code 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
[2024-05-12 20:07] LABS: Basophils # 0.1 10^3/uL (0.0-0.1); Basophils % 0.6 %; Eosinophils % 0.3 %; Lymphocytes # 2.3 10^3/uL (0.8-4.8); Lymphocytes % 23.7 %; Mean Corpuscular HGB Conc 32.3 g/dL (30-55); Mean Corpuscular Hemoglobin 29.3 pg (27-33); Mean Corpuscular Volume 90.6 fl (82-101); Mean Platelet Volume 10.8 fL (7.4-10.4); Monocytes # 0.5 10^3/uL (0.2-0.9); Monocytes % 4.6 %; Neutrophils # 6.85 10^3/uL (1.8-7.7); Neutrophils % 70.5 %; Nucleated Red Blood Cells % 0 %; Platelet Count 335 10^3/cmm (157-399); Red Blood Count 5.19 10^6/uL (3.85-5.65); Red Cell Distribution Width 13.6 % (12.1-15.1); White Blood Count 9.72 10^3/uL (3.29-11.43)
[2024-05-12 20:20] LABS: Alanine Aminotransferase 22 U/L (0-41); Alkaline Phosphatase 91 U/L (40-130); Aspartate Amino Transferase 19 U/L (0-40); Blood Urea Nitrogen 17 mg/dL (6-20); Calcium 9.1 mg/dL (8.5-10.5); Carbon Dioxide 17 mmol/L (22-29); Chloride 97 mmol/L (98-107); Creatinine Clr Calc Pharmacy 96.5389; Globulin 2.8 g/dL (1.3-4.6); Glomerular Filtration Rate 74.1 mL/min (90-130); Glucose 135 mg/dL (65-115); Lipase 27 U/L (13-60); Osmolality Calculated 290 mOsm/kg (285-295); Sodium 138 mmol/L (136-145); Total Bilirubin 0.3 mg/dL (0.15-1.2); Total Protein 7.8 g/dL (6.6-8.7)
--- NOTE | 2024-05-12 20:21 | ECG_ITS ---
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
[2024-05-12 20:30] VITALS: BP 127/80; PULSE 82; RESP 16; O2SAT 99
[2024-05-12] MEDS: sodium chloride 0.9% 1,000 ML 999 ML IV (20:39)
--- NOTE | 2024-05-12 20:58 | XRR_ITS ---
PROCEDURE INFORMATION: Exam: XR Chest Exam date and time: 05/12/2024 9:01 PM Age: 38 years old Clinical indication: Other: Syncope TECHNIQUE: Imaging protocol: Radiologic exam of the chest. Views: 1 view. COMPARISON: CT abdomen pelvis w con* [id number] 09/28/2020 4:48 PM FINDINGS: Lungs: Unremarkable. No consolidation. Pleural spaces: Unremarkable. No pleural effusion. No pneumothorax. Heart/Mediastinum: Unremarkable. No cardiomegaly. Bones/joints: Moderate to severe dextroscoliosis at the thoracolumbar junction, unchanged. No acute osseous abnormality. XR/XR chest 1V portable [id number] IMPRESSION: No visualized acute cardiopulmonary process.
[2024-05-12] MEDS: iohexol 350 mg/mL 500 mL Btl (per mL) IV (21:12)
[2024-05-12 21:25] VITALS: BP 133/92; PULSE 80; RESP 16; O2SAT 97
[2024-05-12 22:54] VITALS: BP 156/79; PULSE 74; RESP 16; O2SAT 99
[2024-05-12] MEDS: HYDROMORPHONE HCL 0.5 MG/0.5 ML INJ 1 MG IVP (22:55)
[2024-05-12] MEDS: methylPREDNISolone sod succ 125 mg/2 mL INJ IVP (22:55)
[2024-05-12] MEDS: ondansetron 2 mg/ML SDV 2 mL 4 MG IVP (22:55)
[2024-05-12 23:22] VITALS: BP 132/71; PULSE 71; RESP 14; O2SAT 98
== END 2024-05-12 23:22 | disposition home or self-care (01) ==
PROVIDERS: Emergency Provider Emergency Medicine; PCP Nurse Practitioner Family
DX: K51.90 Ulcerative colitis, unspecified, without complications (principal); R55 Syncope and collapse; R19.7 Diarrhea, unspecified
CPT/HCPCS: 70450; 71045; 74177; 80053; 83690; 85025; 93005; 96361; 96374; 96375; 99285; J1171; J2405; J2919; J7030